=== PATIENT | female | born 2000 | race Hispanic/Latino ===

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

== ENCOUNTER 2022-01-05 15:49 | Emergency (ER) | payer MEDICAID, OTHER ==
[~2022-01-05] VITALS: Ht 152.4 cm; Wt 90.7 kg
[2022-01-05] MEDS ORDERED: CYCLOBENZAPRINE HCL 10 MG TABLET PO ONE (16:30)
[2022-01-05] MEDS ORDERED: KETOROLAC 60 MG VIAL (30MG/ML) IM ONE ×2 (16:30→16:36)
[2022-01-05] MEDS ORDERED: CYCLOBENZAPRINE HCL 10 MG TABLET ONE (16:36)
[2022-01-05] MEDS ORDERED: CYCL10TA16 PO (17:43)
[2022-01-05] MEDS ORDERED: NAPR-1180 PO (17:43)
[2022-01-05 17:45] VITALS: BP 125/74
== END 2022-01-05 17:53 | disposition home or self-care (01) ==
LOC: EDH 15:49
DX: S16.1XXA Strain of muscle, fascia and tendon at neck level, initial encounter (principal); S29.012A Strain of muscle and tendon of back wall of thorax, initial encounter; S40.011A Contusion of right shoulder, initial encounter; E66.9 Obesity, unspecified; Z68.39 Body mass index [BMI] 39.0-39.9, adult; Z88.1 Allergy status to other antibiotic agents; X58.XXXA Exposure to other specified factors, initial encounter; Y93.89 Activity, other specified; Y92.89 Other specified places as the place of occurrence of the external cause; Y99.8 Other external cause status
CPT/HCPCS: 99285; 72125; 81025; 73030; 72128; 96372; J1885